=== PATIENT | male | born 1965 | race Caucasian/White ===

== ENCOUNTER 2018-01-22 17:13 | Emergency (ER) | payer MEDICAID, OTHER ==
[2018-01-22] MEDS: CLINDAMYCIN 300 MG INJ IV (19:37)
[2018-01-22] MEDS: SOD CHLORIDE 0.9% 1,000 ML IV ×2 (19:37→21:00)
[2018-01-22 20:15] LABS: ADD MAN DIFF? NO
[2018-01-22 20:20] LABS: WHITE BLOOD COUNT 12.5 10^3/ul (4.8-10.8)
[2018-01-22 20:20] LABS: BASOPHIL # 0.1 10^3/ul (0.0-0.1); BASOPHILS % 0.8 % (0.0-2.0); EOSINOPHILS % 0.2 % (0.0-7.0); HEMATOCRIT 30.6 % (42.0-52.0); HEMOGLOBIN 10.2 g/dl (14.0-18.0); LYMPHOCYTES # 1.4 10^3/ul (0.8-2.9); MEAN CORPUSCULAR HEMOGLOBIN 29.1 pg (29.0-33.0); MEAN CORPUSCULAR HGB CONC 33.3 g/dl (32.0-37.0); MEAN CORPUSCULAR VOLUME 87.4 fl (82.0-101.0); MEAN PLATELET VOLUME 11.3 fl (7.4-10.4); MONOCYTES % 8.3 % (0.0-11.0); NEUTROPHIL # 9.8 10^3/ul (1.6-7.5); NEUTROPHILS % 78.7 % (39.0-77.0); PLATELET COUNT 408 10^3/UL (140-415); RED CELL DISTRIBUTION WIDTH 12.1 % (11.5-14.5)
[2018-01-22 20:24] LABS: ADD UMIC YES; UR ASCORBIC ACID NEGATIVE (NEGATIVE); UR BILIRUBIN (Dip) NEGATIVE (NEGATIVE); UR BLOOD (Dip) NEGATIVE (NEGATIVE); UR CLARITY CLEAR (CLEAR); UR COLOR STRAW (YELLOW); UR GLUCOSE (Dip) 3+ mg/dL (NEGATIVE); UR KETONES (Dip) NEGATIVE (NEGATIVE); UR LEUKOCYTE ESTERASE (Dip) NEGATIVE Leu/ul (NEGATIVE); UR NITRITE (Dip) NEGATIVE (NEGATIVE); UR RBC 1 /HPF (0-5); UR SPECIFIC GRAVITY (Dip) 1.022 (1.003-1.030); UR TOTAL PROTEIN (Dip) 3+ mg/dl (NEGATIVE); UR UROBILINOGEN (Dip) NEGATIVE (NEGATIVE); UR WBC 1 /HPF (0-5)
[2018-01-22 20:36] LABS: ALANINE AMINOTRANSFERASE 17 IU/L (13-69); ALBUMIN 3.8 g/dl (3.3-4.9); ALBUMIN/GLOBULIN RATIO 0.97; ALKALINE PHOSPHATASE 124 IU/L (42-121); ANION GAP 16 (8-16); ASPARTATE AMINO TRANSFERASE 12 IU/L (15-46); BILIRUBIN,INDIRECT 0.2 mg/dl (0-1.1); BILIRUBIN,TOTAL 0.2 mg/dl (0.2-1.3); BLOOD UREA NITROGEN 29 mg/dl (7-20); CALCIUM 8.8 mg/dl (8.4-10.2); CARBON DIOXIDE 28 mmol/L (21-31); CHLORIDE 92 mmol/L (97-110); CREATININE 2.13 mg/dl (0.61-1.24); POTASSIUM 4.6 mmol/L (3.5-5.1); SODIUM 131 mmol/L (135-144); TOTAL PROTEIN 7.7 g/dl (6.1-8.1)
[2018-01-22 20:43] LABS: GLUCOSE 580 mg/dl (70-220)
[2018-01-22] MEDS: INSULIN LISPRO 100 UNIT/ML VIAL SC (21:15)
[2018-01-22] MEDS: BACITRACIN 0.5%/ZINC 28.35 GM OINT TOP (23:14)
== END 2018-01-22 23:18 | disposition home or self-care (01) ==
LOC: FTE 17:13
DX: L03.114 Cellulitis of left upper limb (principal); E11.65 Type 2 diabetes mellitus with hyperglycemia; Z79.84 Long term (current) use of oral hypoglycemic drugs
CPT/HCPCS: 73080; 73080-LT; 80053; 81001; 82962; 85025; 96372; 96374; 99284-25

== ENCOUNTER 2018-01-25 13:09 | Emergency (ER) | payer MEDICAID | END 2018-01-25 13:25 | disposition home or self-care (01) | LOC: E/R 13:09 | DX: L03.114 Cellulitis of left upper limb (principal); E11.9 Type 2 diabetes mellitus without complications; Z79.84 Long term (current) use of oral hypoglycemic drugs | CPT/HCPCS: 99283; Z7502 ==

== ENCOUNTER 2018-03-25 15:57 | Inpatient (IN) | payer MEDICAID ==
[2018-03-25 19:30] LABS: ADD MAN DIFF? NO
[2018-03-25 19:33] LABS: MODE ROOM AIR; MetHgb Venous 0 %; Sample Type Blood venous; Site VENOUS LINE; Venous COHb 0.7 %; Venous Fraction OxyHgb 62.5 %; Venous Oxygen Sat 62.9 mmHG (55.0-75.0); Venous Total Hemglobin 11.6 g/dl
[2018-03-25] MEDS: SOD CHLORIDE 0.9% 1,000 ML IV (19:36)
[2018-03-25] MEDS: ONDANSETRON 4 MG INJ IV (19:36)
[2018-03-25 19:47] LABS: WHITE BLOOD COUNT 8.6 10^3/ul (4.8-10.8)
[2018-03-25 19:47] LABS: BASOPHIL # 0.1 10^3/ul (0.0-0.1); EOSINOPHILS % 0.2 % (0.0-7.0); HEMATOCRIT 31.7 % (42.0-52.0); HEMOGLOBIN 10.6 g/dl (14.0-18.0); LYMPHOCYTES # 1.7 10^3/ul (0.8-2.9); LYMPHOCYTES % 19.7 % (15.0-51.0); MEAN CORPUSCULAR HEMOGLOBIN 28.9 pg (29.0-33.0); MEAN CORPUSCULAR HGB CONC 33.4 g/dl (32.0-37.0); MEAN CORPUSCULAR VOLUME 86.4 fl (82.0-101.0); MEAN PLATELET VOLUME 10.9 fl (7.4-10.4); MONOCYTE # 0.5 10^3/ul (0.3-0.9); MONOCYTES % 5.3 % (0.0-11.0); NEUTROPHIL # 6.3 10^3/ul (1.6-7.5); NEUTROPHILS % 73.1 % (39.0-77.0); PLATELET COUNT 364 10^3/UL (140-415); RED BLOOD COUNT 3.67 10^6/ul (4.70-6.10); RED CELL DISTRIBUTION WIDTH 12.9 % (11.5-14.5)
[2018-03-25 20:08] LABS: ANION GAP 17 (8-16); BLOOD UREA NITROGEN 34 mg/dl (7-20); CALCIUM 9.5 mg/dl (8.4-10.2); CARBON DIOXIDE 22 mmol/L (21-31); CHLORIDE 100 mmol/L (97-110); POTASSIUM 4.7 mmol/L (3.5-5.1); SODIUM 134 mmol/L (135-144)
[2018-03-25 20:11] LABS: LACTIC ACID 1.1 mmol/L (0.5-2.0)
[2018-03-25 20:31] LABS: GLUCOSE 418 mg/dl (70-220)
[2018-03-25] MEDS: INSULIN LISPRO 100 UNIT/ML VIAL SC (21:21)
[2018-03-25] MEDS ORDERED: ONDANSETRON 4 MG INJ IV (21:30)
[2018-03-25] MEDS ORDERED: ACETAMINOPHEN 325 MG TAB PO (21:30)
[2018-03-25 22:04] LABS: ADD UMIC YES; UR ASCORBIC ACID NEGATIVE (NEGATIVE); UR BILIRUBIN (Dip) NEGATIVE (NEGATIVE); UR BLOOD (Dip) 1+ mg/dL (NEGATIVE); UR CLARITY SLIGHTLY CLOUDY (CLEAR); UR COLOR YELLOW (YELLOW); UR GLUCOSE (Dip) 3+ mg/dL (NEGATIVE); UR KETONES (Dip) NEGATIVE (NEGATIVE); UR LEUKOCYTE ESTERASE (Dip) NEGATIVE Leu/ul (NEGATIVE); UR MUCUS FEW /HPF (NONE SEEN); UR NITRITE (Dip) NEGATIVE (NEGATIVE); UR RBC 1 /HPF (0-5); UR TOTAL PROTEIN (Dip) 3+ mg/dl (NEGATIVE); UR UROBILINOGEN (Dip) NEGATIVE (NEGATIVE); UR WBC 4 /HPF (0-5)
[2018-03-25 22:21] LABS: LACTIC ACID 0.9 mmol/L (0.5-2.0)
[2018-03-25] MEDS ORDERED: DEXTROSE 50% 50 ML SYRINGE IV ×2 (23:45)
[2018-03-25] MEDS ORDERED: GLUCAGON 1 MG INJ IM (23:45)
[2018-03-25] MEDS ORDERED: GLUCOSE GEL 15 GRAM TUBE PO ×2 (23:45)
[2018-03-25] MEDS ORDERED: GLUCOSE GEL 15 GRAM TUBE BUCCAL (23:45)
[2018-03-25] MEDS: METOPROLOL 25 MG TAB PO (23:53)
[2018-03-26 00:48] LABS: LACTIC ACID 1.5 mmol/L (0.5-2.0)
[2018-03-26] MEDS: ACCU-CHEK XX (02:00)
[2018-03-26 08:07] LABS: ADD MAN DIFF? NO
[2018-03-26] MEDS: CHOLECALCIFEROL 1,000 UNIT TAB PO (08:14)
[2018-03-26] MEDS: ASPIRIN (EC) 81 MG TAB PO (08:14)
[2018-03-26] MEDS: METOPROLOL 25 MG TAB PO ×2 (08:15→20:34)
[2018-03-26 08:18] LABS: BASOPHIL # 0.1 10^3/ul (0.0-0.1); BASOPHILS % 1.5 % (0.0-2.0); EOSINOPHILS # 0.1 10^3/ul (0.0-0.5); EOSINOPHILS % 1.9 % (0.0-7.0); HEMATOCRIT 28.4 % (42.0-52.0); HEMOGLOBIN 9.2 g/dl (14.0-18.0); LYMPHOCYTES # 2.2 10^3/ul (0.8-2.9); LYMPHOCYTES % 29.5 % (15.0-51.0); MEAN CORPUSCULAR HEMOGLOBIN 28.5 pg (29.0-33.0); MEAN CORPUSCULAR HGB CONC 32.4 g/dl (32.0-37.0); MEAN CORPUSCULAR VOLUME 87.9 fl (82.0-101.0); MEAN PLATELET VOLUME 11.2 fl (7.4-10.4); MONOCYTE # 0.5 10^3/ul (0.3-0.9); NEUTROPHIL # 4.4 10^3/ul (1.6-7.5); NEUTROPHILS % 59.4 % (39.0-77.0); PLATELET COUNT 328 10^3/UL (140-415); RED BLOOD COUNT 3.23 10^6/ul (4.70-6.10); RED CELL DISTRIBUTION WIDTH 13.2 % (11.5-14.5)
[2018-03-26 08:18] LABS: WHITE BLOOD COUNT 7.4 10^3/ul (4.8-10.8)
[2018-03-26] MEDS: INSULIN ASPART [NOVOLOG] 3 ML PEN SC ×7 (08:22→20:53)
[2018-03-26] MEDS: NPH, HUMAN INSULIN ISOPHANE 3ML VIAL SC (08:22)
[2018-03-26 08:55] LABS: IRON 54 ug/dl (35-150)
[2018-03-26 09:05] LABS: % IRON SATURATION 21 % SAT (22-52); TOTAL IRON BINDING CAPACITY 256 ug/dl (241-421)
[2018-03-26 09:07] LABS: ALANINE AMINOTRANSFERASE 32 IU/L (13-69); ALBUMIN 3.5 g/dl (3.3-4.9); ALBUMIN/GLOBULIN RATIO 1.16; ALKALINE PHOSPHATASE 84 IU/L (42-121); ANION GAP 11 (8-16); ASPARTATE AMINO TRANSFERASE 25 IU/L (15-46); BLOOD UREA NITROGEN 33 mg/dl (7-20); CARBON DIOXIDE 24 mmol/L (21-31); CHLORIDE 108 mmol/L (97-110); CREATININE 2.78 mg/dl (0.61-1.24); GLUCOSE 257 mg/dl (70-220); POTASSIUM 4.4 mmol/L (3.5-5.1); SODIUM 139 mmol/L (135-144); TOTAL PROTEIN 6.5 g/dl (6.1-8.1)
[2018-03-26] MEDS: SOD CHLORIDE 0.9% 1,000 ML IV ×2 (09:26→23:27)
[2018-03-26 10:10] LABS: CHOLESTEROL 187 mg/dl (100-200)
[2018-03-26 10:10] LABS: CHOL/HDL RATIO 4.7 RATIO; HDL CHOLESTEROL 39 mg/dl (28-71); LDL CHOLESTEROL,CALCULATED 73 mg/dl; TRIGLYCERIDES 375 mg/dl (0-149)
[2018-03-26 11:39] LABS: HEMOGLOBIN A1C 12.6 % (0-5.9)
[2018-03-26 12:58] LABS: ADD UMIC YES; IRON 58 ug/dl (35-150); UR ASCORBIC ACID NEGATIVE (NEGATIVE); UR BACTERIA FEW /HPF (NONE SEEN); UR BILIRUBIN (Dip) NEGATIVE (NEGATIVE); UR BLOOD (Dip) 1+ mg/dL (NEGATIVE); UR CLARITY CLEAR (CLEAR); UR COLOR YELLOW (YELLOW); UR GLUCOSE (Dip) 3+ mg/dL (NEGATIVE); UR KETONES (Dip) NEGATIVE (NEGATIVE); UR LEUKOCYTE ESTERASE (Dip) NEGATIVE Leu/ul (NEGATIVE); UR NITRITE (Dip) NEGATIVE (NEGATIVE); UR RBC 0 /HPF (0-5); UR SPECIFIC GRAVITY (Dip) 1.017 (1.003-1.030); UR TOTAL PROTEIN (Dip) 3+ mg/dl (NEGATIVE); UR UROBILINOGEN (Dip) NEGATIVE (NEGATIVE); UR WBC 1 /HPF (0-5)
[2018-03-26 13:07] LABS: % IRON SATURATION 26 % SAT (22-52); TOTAL IRON BINDING CAPACITY 222 ug/dl (241-421)
[2018-03-26 13:16] LABS: SODIUM,URINE RANDOM 54 mmol/L (30-90)
[2018-03-26 13:16] LABS: CREATININE,URINE RANDOM 120.15 mg/dl (20-370)
[2018-03-26] MEDS: ATORVASTATIN 20 MG TAB PO (20:34)
[2018-03-26] MEDS: INSULIN GLARGINE [LANTus] (100 UNITS/ML) SYG SC (21:30)
[2018-03-27] MEDS: ACCU-CHEK XX (02:00)
[2018-03-27 05:23] LABS: ADD MAN DIFF? NO
[2018-03-27 05:25] LABS: BASOPHIL # 0.1 10^3/ul (0.0-0.1); BASOPHILS % 1.6 % (0.0-2.0); EOSINOPHILS # 0.1 10^3/ul (0.0-0.5); EOSINOPHILS % 1.9 % (0.0-7.0); HEMATOCRIT 28.7 % (42.0-52.0); HEMOGLOBIN 9.5 g/dl (14.0-18.0); LYMPHOCYTES # 2.3 10^3/ul (0.8-2.9); LYMPHOCYTES % 32.5 % (15.0-51.0); MEAN CORPUSCULAR HEMOGLOBIN 29.7 pg (29.0-33.0); MEAN CORPUSCULAR HGB CONC 33.1 g/dl (32.0-37.0); MEAN CORPUSCULAR VOLUME 89.7 fl (82.0-101.0); MEAN PLATELET VOLUME 10.8 fl (7.4-10.4); MONOCYTE # 0.5 10^3/ul (0.3-0.9); MONOCYTES % 6.6 % (0.0-11.0); NEUTROPHILS % 56.5 % (39.0-77.0); PLATELET COUNT 311 10^3/UL (140-415); RED CELL DISTRIBUTION WIDTH 13.3 % (11.5-14.5)
[2018-03-27] MEDS: ACETAMINOPHEN 325 MG TAB PO (05:35)
[2018-03-27 05:58] LABS: ANION GAP 9 (8-16); BLOOD UREA NITROGEN 29 mg/dl (7-20); CALCIUM 8.7 mg/dl (8.4-10.2); CARBON DIOXIDE 23 mmol/L (21-31); CHLORIDE 112 mmol/L (97-110); CREATININE 2.34 mg/dl (0.61-1.24); GLUCOSE 146 mg/dl (70-220); MAGNESIUM 2.1 mg/dl (1.7-2.5); POTASSIUM 4.1 mmol/L (3.5-5.1); SODIUM 140 mmol/L (135-144)
[2018-03-27] MEDS: ASPIRIN (EC) 81 MG TAB PO (08:22)
[2018-03-27] MEDS: CHOLECALCIFEROL 1,000 UNIT TAB PO (08:22)
[2018-03-27] MEDS: METOPROLOL 25 MG TAB PO (08:23)
[2018-03-27] MEDS: INSULIN ASPART [NOVOLOG] 3 ML PEN SC ×2 (08:25→08:26)
[2018-03-27] MEDS: SOD CHLORIDE 0.9% 1,000 ML IV (09:14)
[2018-03-29 17:06] LABS: CREATININE, RANDOM URINE 136 mg/dL (20-370); MICROALBUMIN 174.8 mg/dL; MICROALBUMIN/CREATININE RATIO 1285 (<30)
== END 2018-03-27 11:15 | disposition home or self-care (01) | DRG 684 ==
LOC: E/R 15:57 → MS2 21:06
DX: N17.9 Acute kidney failure, unspecified (principal); E86.0 Dehydration; N18.4 Chronic kidney disease, stage 4 (severe); I12.9 Hypertensive chronic kidney disease with stage 1 through stage 4 chronic kidney disease, or unspecified chronic kidney disease; E10.22 Type 1 diabetes mellitus with diabetic chronic kidney disease; E10.65 Type 1 diabetes mellitus with hyperglycemia; D63.1 Anemia in chronic kidney disease; D63.8 Anemia in other chronic diseases classified elsewhere; E78.5 Hyperlipidemia, unspecified; Z79.4 Long term (current) use of insulin; Z79.82 Long term (current) use of aspirin; Z89.112 Acquired absence of left hand
CPT/HCPCS: 36415; 76775; 80048; 80053; 80061; 81001; 81003; 82043; 82728; 82803; 82962; 83036; 83540; 83605; 83735; 84100; 84155; 84300; 85025; 93005; 96374; 99285-25

== ENCOUNTER 2019-02-15 10:22 | Inpatient (IN) | payer MEDICAID ==
[2019-02-15 11:12] LABS: ADD MAN DIFF? NO
[2019-02-15 11:31] LABS: ALANINE AMINOTRANSFERASE 28 IU/L (13-69); ALBUMIN 3.2 g/dl (3.3-4.9); ALBUMIN/GLOBULIN RATIO 1.06; ALKALINE PHOSPHATASE 122 IU/L (42-121); ANION GAP 7 (5-13); ASPARTATE AMINO TRANSFERASE 25 IU/L (15-46); BILIRUBIN,INDIRECT 0.4 mg/dl (0-1.1); BILIRUBIN,TOTAL 0.4 mg/dl (0.2-1.3); BLOOD UREA NITROGEN 36 mg/dl (7-20); CALCIUM 8.5 mg/dl (8.4-10.2); CARBON DIOXIDE 21 mmol/L (21-31); CHLORIDE 111 mmol/L (97-110); CREATININE 3.99 mg/dl (0.61-1.24); Estimated GFR 16 mL/min (>60); GLUCOSE 166 mg/dl (70-220); LIPASE 187 U/L (23-300); POTASSIUM 4.2 mmol/L (3.5-5.1); SODIUM 139 mmol/L (135-144); TOTAL PROTEIN 6.2 g/dl (6.1-8.1)
[2019-02-15 11:35] LABS: WHITE BLOOD COUNT 4.4 10^3/ul (4.8-10.8)
[2019-02-15 11:35] LABS: BASOPHIL # 0.1 10^3/ul (0.0-0.1); EOSINOPHILS # 0.1 10^3/ul (0.0-0.5); EOSINOPHILS % 2.3 % (0.0-7.0); HEMATOCRIT 29.6 % (42.0-52.0); HEMOGLOBIN 9.3 g/dl (14.0-18.0); LYMPHOCYTES # 0.9 10^3/ul (0.8-2.9); LYMPHOCYTES % 19.4 % (15.0-51.0); MEAN CORPUSCULAR HEMOGLOBIN 29.2 pg (29.0-33.0); MEAN CORPUSCULAR HGB CONC 31.4 g/dl (32.0-37.0); MEAN CORPUSCULAR VOLUME 92.8 fl (82.0-101.0); MEAN PLATELET VOLUME 10.7 fl (7.4-10.4); MONOCYTE # 0.4 10^3/ul (0.3-0.9); NEUTROPHIL # 2.9 10^3/ul (1.6-7.5); NEUTROPHILS % 64.8 % (39.0-77.0); PLATELET COUNT 346 10^3/UL (140-415); RED BLOOD COUNT 3.19 10^6/ul (4.70-6.10); RED CELL DISTRIBUTION WIDTH 13.9 % (11.5-14.5)
[2019-02-15 11:51] LABS: TROPONIN-I < 0.012 ng/ml (0.000-0.120)
[2019-02-15 11:54] LABS: INR 1.02; PARTIAL THROMBOPLASTIN TIME 27.8 Sec (23.0-35.0); PROTIME 13.5 Sec (11.9-14.9); PT RATIO 1.1
[2019-02-15] MEDS ORDERED: ACETAMINOPHEN 325 MG TAB PO ×2 (12:00→14:00)
[2019-02-15] MEDS ORDERED: ONDANSETRON 4 MG INJ IV ×2 (12:00→14:00)
[2019-02-15] MEDS ORDERED: HYDROCODONE/APAP (5/325) TAB PO (14:00)
[2019-02-15 14:30] LABS: HEMOGLOBIN A1C 7.2 % (0-5.9)
[2019-02-15] MEDS ORDERED: GLUCOSE GEL 15 GRAM TUBE BUCCAL (14:30)
[2019-02-15] MEDS ORDERED: DEXTROSE 50% 50 ML SYRINGE IV ×2 (14:30)
[2019-02-15] MEDS ORDERED: GLUCAGON 1 MG INJ IM (14:30)
[2019-02-15] MEDS ORDERED: GLUCOSE GEL 15 GRAM TUBE PO ×2 (14:30)
[2019-02-15 14:51] LABS: B-TYPE NATRIURETIC PEPTIDE 3820 PG/ML (0-125)
[2019-02-15] MEDS: FUROSEMIDE 20 MG INJ IV (14:53)
[2019-02-15] MEDS: HEPARIN 5,000 UNIT/1 ML VIAL SC ×2 (14:54→22:32)
[2019-02-15] MEDS: INSULIN ASPART [NOVOLOG] 3 ML PEN SC ×3 (17:55→21:00)
[2019-02-15 18:18] LABS: CREATINE KINASE 154 IU/L (23-200)
[2019-02-15 18:29] LABS: TROPONIN-I < 0.012 ng/ml (0.000-0.120)
[2019-02-15 18:48] LABS: CK INDEX 3.1
[2019-02-15 18:56] LABS: CK-MB 4.74 ng/ml (0.0-2.4)
[2019-02-15] MEDS: INSULIN GLARGINE [LANTus] (100 UNITS/ML) SYG SC (22:31)
[2019-02-15] MEDS: ATORVASTATIN 20 MG TAB PO (22:32)
[2019-02-15] MEDS: hydrALAzine 20 MG INJ IV (22:33)
[2019-02-15] MEDS: NACL 0.9% 3 ML SYG IV (22:40)
[2019-02-16 05:24] LABS: ADD MAN DIFF? NO
[2019-02-16 05:27] LABS: BASOPHIL # 0.2 10^3/ul (0.0-0.1); BASOPHILS % 3.8 % (0.0-2.0); EOSINOPHILS # 0.2 10^3/ul (0.0-0.5); EOSINOPHILS % 4.8 % (0.0-7.0); HEMATOCRIT 28.7 % (42.0-52.0); LYMPHOCYTES % 24.7 % (15.0-51.0); MEAN CORPUSCULAR HEMOGLOBIN 28.4 pg (29.0-33.0); MEAN CORPUSCULAR HGB CONC 31.4 g/dl (32.0-37.0); MEAN CORPUSCULAR VOLUME 90.5 fl (82.0-101.0); MEAN PLATELET VOLUME 10.8 fl (7.4-10.4); MONOCYTE # 0.5 10^3/ul (0.3-0.9); NEUTROPHIL # 2.1 10^3/ul (1.6-7.5); NEUTROPHILS % 54.4 % (39.0-77.0); PLATELET COUNT 327 10^3/UL (140-415); RED BLOOD COUNT 3.17 10^6/ul (4.70-6.10)
[2019-02-16 05:27] LABS: WHITE BLOOD COUNT 3.9 10^3/ul (4.8-10.8)
[2019-02-16 05:52] LABS: INR 1.01; PROTIME 13.4 Sec (11.9-14.9)
[2019-02-16 05:53] LABS: PARTIAL THROMBOPLASTIN TIME 28.2 Sec (23.0-35.0)
[2019-02-16 06:03] LABS: ALANINE AMINOTRANSFERASE 27 IU/L (13-69); ALBUMIN 2.7 g/dl (3.3-4.9); ALBUMIN/GLOBULIN RATIO 0.93; ALKALINE PHOSPHATASE 110 IU/L (42-121); ANION GAP 6 (5-13); ASPARTATE AMINO TRANSFERASE 18 IU/L (15-46); BILIRUBIN,INDIRECT 0.2 mg/dl (0-1.1); BILIRUBIN,TOTAL 0.2 mg/dl (0.2-1.3); BLOOD UREA NITROGEN 36 mg/dl (7-20); CALCIUM 8.2 mg/dl (8.4-10.2); CARBON DIOXIDE 23 mmol/L (21-31); CHLORIDE 114 mmol/L (97-110); CREATININE 3.72 mg/dl (0.61-1.24); Estimated GFR 17 mL/min (>60); GLUCOSE 83 mg/dl (70-220); SODIUM 143 mmol/L (135-144); TOTAL PROTEIN 5.6 g/dl (6.1-8.1)
[2019-02-16 06:06] LABS: CHOL/HDL RATIO 2.7 RATIO; HDL CHOLESTEROL 48 mg/dl (28-71); LDL CHOLESTEROL,CALCULATED 69 mg/dl; TRIGLYCERIDES 79 mg/dl (0-149)
[2019-02-16 06:06] LABS: CHOLESTEROL 133 mg/dl (100-200)
[2019-02-16 06:15] LABS: PHOSPHORUS 4.3 mg/dl (2.5-4.9)
[2019-02-16 06:15] LABS: CREATINE KINASE 107 IU/L (23-200); MAGNESIUM 2.1 mg/dl (1.7-2.5)
[2019-02-16 06:20] LABS: CK INDEX 4.2
[2019-02-16 06:35] LABS: CK-MB 4.47 ng/ml (0.0-2.4); TROPONIN-I < 0.012 ng/ml (0.000-0.120)
[2019-02-16] MEDS: HEPARIN 5,000 UNIT/1 ML VIAL SC ×3 (06:40→23:04)
[2019-02-16] MEDS: INSULIN ASPART [NOVOLOG] 3 ML PEN SC ×7 (07:50→21:00)
[2019-02-16] MEDS: ASPIRIN (EC) 81 MG TAB PO (08:32)
[2019-02-16 09:51] LABS: ADD UMIC YES; UR ASCORBIC ACID NEGATIVE (NEGATIVE); UR BILIRUBIN (Dip) NEGATIVE (NEGATIVE); UR BLOOD (Dip) NEGATIVE (NEGATIVE); UR CLARITY CLEAR (CLEAR); UR COLOR STRAW (YELLOW); UR GLUCOSE (Dip) 1+ mg/dL (NEGATIVE); UR KETONES (Dip) NEGATIVE (NEGATIVE); UR LEUKOCYTE ESTERASE (Dip) NEGATIVE Leu/ul (NEGATIVE); UR NITRITE (Dip) NEGATIVE (NEGATIVE); UR RBC 1 /HPF (0-5); UR SPECIFIC GRAVITY (Dip) 1.012 (1.003-1.030); UR TOTAL PROTEIN (Dip) 3+ mg/dl (NEGATIVE); UR UROBILINOGEN (Dip) NEGATIVE (NEGATIVE); UR WBC 1 /HPF (0-5)
[2019-02-16 10:23] LABS: CREATININE,URINE RANDOM 60.79 mg/dl (20-370)
[2019-02-16 10:23] LABS: SODIUM,URINE RANDOM 121 mmol/L (30-90)
[2019-02-16] MEDS: FUROSEMIDE 40 MG INJ IV ×2 (10:29→17:19)
[2019-02-16 10:58] LABS: PROTEIN URINE > 600.0 mg/dl (0.0-11.9)
[2019-02-16] MEDS: ATORVASTATIN 20 MG TAB PO (22:08)
[2019-02-16] MEDS: INSULIN GLARGINE [LANTus] (100 UNITS/ML) SYG SC (22:11)
[2019-02-17 05:17] LABS: ADD MAN DIFF? NO
[2019-02-17 05:24] LABS: WHITE BLOOD COUNT 4.2 10^3/ul (4.8-10.8)
[2019-02-17 05:24] LABS: BASOPHIL # 0.1 10^3/ul (0.0-0.1); BASOPHILS % 3.1 % (0.0-2.0); EOSINOPHILS # 0.2 10^3/ul (0.0-0.5); EOSINOPHILS % 5.7 % (0.0-7.0); HEMATOCRIT 28.1 % (42.0-52.0); LYMPHOCYTES # 1.2 10^3/ul (0.8-2.9); LYMPHOCYTES % 27.3 % (15.0-51.0); MEAN CORPUSCULAR HEMOGLOBIN 29.2 pg (29.0-33.0); MEAN CORPUSCULAR VOLUME 91.2 fl (82.0-101.0); MEAN PLATELET VOLUME 10.9 fl (7.4-10.4); MONOCYTE # 0.5 10^3/ul (0.3-0.9); MONOCYTES % 10.9 % (0.0-11.0); NEUTROPHIL # 2.2 10^3/ul (1.6-7.5); NEUTROPHILS % 52.8 % (39.0-77.0); PLATELET COUNT 322 10^3/UL (140-415); RED BLOOD COUNT 3.08 10^6/ul (4.70-6.10); RED CELL DISTRIBUTION WIDTH 13.8 % (11.5-14.5)
[2019-02-17 05:57] LABS: ANION GAP 6 (5-13); BLOOD UREA NITROGEN 35 mg/dl (7-20); CALCIUM 8.2 mg/dl (8.4-10.2); CARBON DIOXIDE 24 mmol/L (21-31); CHLORIDE 109 mmol/L (97-110); CREATININE 3.74 mg/dl (0.61-1.24); Estimated GFR 17 mL/min (>60); GLUCOSE 81 mg/dl (70-220); MAGNESIUM 1.9 mg/dl (1.7-2.5); PHOSPHORUS 4.4 mg/dl (2.5-4.9); POTASSIUM 3.9 mmol/L (3.5-5.1); SODIUM 139 mmol/L (135-144)
[2019-02-17] MEDS: FUROSEMIDE 40 MG INJ IV (06:08)
[2019-02-17] MEDS: HEPARIN 5,000 UNIT/1 ML VIAL SC ×2 (06:11→13:24)
[2019-02-17] MEDS: INSULIN ASPART [NOVOLOG] 3 ML PEN SC ×4 (07:50→13:10)
[2019-02-17] MEDS: ASPIRIN (EC) 81 MG TAB PO (08:36)
[2019-02-17 16:57] LABS: CREATININE, RANDOM URINE 67 mg/dL (20-320); MICROALBUMIN 265.1 mg/dL; MICROALBUMIN/CREATININE RATIO 3957 (<30)
[2019-02-17] MEDS ORDERED: BUMETANIDE 1 MG TAB PO (18:00)
== END 2019-02-17 14:50 | disposition home or self-care (01) | DRG 683 ==
LOC: E/R 10:22 → MS1 11:55
PROVIDERS: Family Medicine
DX: N17.9 Acute kidney failure, unspecified (principal); E87.2 Acidosis; I12.9 Hypertensive chronic kidney disease with stage 1 through stage 4 chronic kidney disease, or unspecified chronic kidney disease; E11.22 Type 2 diabetes mellitus with diabetic chronic kidney disease; E78.5 Hyperlipidemia, unspecified; D64.9 Anemia, unspecified; N18.3 Chronic kidney disease, stage 3 (moderate); Z89.022 Acquired absence of left finger(s)
CPT/HCPCS: 71045; 76775; 80048; 80053; 80061; 81001; 81003; 82043; 82550; 82553; 82962; 83036; 83690; 83735; 83880; 84100; 84155; 84300; 84439; 84443; 84484; 85025; 85610; 85730; 86850; 86900; 86901; 93005; 93306; 93971; 99285-25